=== PATIENT | male | born 1930 | race Caucasian/White ===

== ENCOUNTER 2018-02-27 11:41 | Observation (INO) | payer MEDICARE ==
[2018-02-27] MEDS ORDERED: SODIUM CHLORIDE 0.9% 1,000 ML IV ONE (12:47)
[2018-02-27] MEDS ORDERED: MORPHINE SULFATE 2 MG/ML SYRINGE IVP PRN (12:50)
--- NOTE | 2018-02-27 12:50 | ED ---
General Adult HPI - General Chief complaint: Extremity Injury, Lower Stated complaint: fall Time Seen by Provider: 02/27/18 11:44 Source: EMS, RN notes reviewed, old records reviewed Mode of arrival: EMS Limitations: no limitations - History of Present Illness Initial comments: This is a 87-year-old male the ER status post fall. Status post fall with back pain. Patient was on outpatient medication with no improvement. Patient saw his family doctor 3 days ago with no improvement. Complaining of right lumbar spine right back pain. Also complains of weakness, inability to ambulate inability to get up from his bed. Patient denies any abdominal pains no fevers. Again does admit to trauma around 1 week ago - Related Data Home Medications Medication Instructions Recorded Confirmed Warfarin Sodium [Coumadin] 5 mg PO HS 02/27/18 02/27/18 Warfarin [Coumadin] 4 mg PO HS 02/27/18 02/27/18 tiZANidine HCL [Zanaflex] 2 mg PO TID PRN 02/27/18 02/27/18 Allergies Allergy/AdvReac Type Severity Reaction Status Date / Time No Known Allergies Allergy Verified 02/27/18 12:08 Review of Systems ROS Statement: Those systems with pertinent positive or pertinent negative responses have been documented in the HPI. ROS Other: All systems not noted in ROS Statement are negative. Past Medical History Past Medical History: Prostate Disorder History of Any Multi-Drug Resistant Organisms: None Reported Past Surgical History: Prostate Surgery Past Psychological History: No Psychological Hx Reported Smoking Status: Never smoker Past Alcohol Use History: None Reported Past Drug Use History: None Reported General Exam - General Exam Comments Initial Comments: No focal neurological deficits found Limitations: no limitations General appearance: alert, in no apparent distress Head exam: Present: atraumatic, normocephalic, normal inspection Eye exam: Present: normal appearance, PERRL, EOMI. Absent: scleral icterus, conjunctival injection, periorbital swelling ENT exam: Present: normal exam, mucous membranes moist Neck exam: Present: normal inspection. Absent: tenderness, meningismus, lymphadenopathy Respiratory exam: Present: normal lung sounds bilaterally. Absent: respiratory distress, wheezes, rales, rhonchi, stridor Cardiovascular Exam: Present: regular rate, normal rhythm, normal heart sounds. Absent: systolic murmur, diastolic murmur, rubs, gallop, clicks GI/Abdominal exam: Present: soft, normal bowel sounds. Absent: distended, tenderness, guarding, rebound, rigid Extremities exam: Present: normal inspection, full ROM, normal capillary refill. Absent: tenderness, pedal edema, joint swelling, calf tenderness Back exam: Present: normal inspection Neurological exam: Present: alert, oriented X3, CN II-XII intact Psychiatric exam: Present: normal affect, normal mood Skin exam: Present: warm, dry, intact, normal color. Absent: rash Course Vital Signs 02/27/18 11:48 Temperature 98.4 F Pulse Rate 85 Respiratory 18 Rate Blood Pressure 195/86 O2 Sat by Pulse 95 Oximetry - Reevaluation(s) Reevaluation #1: 02/27/18 12:49 Patient states he still has significant back pain although the pain is controlled right now with medication Medical Decision Making - Medical Decision Making 87 male the ER for evaluation, patient sent ER today for evaluation inability to ambulate, fall a week ago, no improvement, mild UTI. Patient was transferred for further imaging - Radiology Data Radiology results: report reviewed (CT brain C-spine as well as CT lumbar spine and lumbosacral spine are reviewed which show no evidence of traumatic injury) Disposition Clinical Impression: Fall, Back pain, Weakness, UTI (urinary tract infection) Disposition: ADMITTED IP TO THIS HOSP Condition: Fair Is patient prescribed a controlled substance at d/c from ED?: No Referrals: Yaquelin Ga FNPBC [Primary Care Provider] - 1-2 days
[2018-02-27] MEDS ORDERED: ACETAMINOPHEN TAB 325 MG TAB PO PRN (13:18)
[2018-02-27 14:36] LABS: INR 2.9 (<1.2); Prothrombin Time 25.8 sec (9.0-12.0)
--- NOTE | 2018-02-27 17:00 | P.HPIM ---
History of Present Illness 87-year-old gentleman had a mechanical fall and was comparing of severe back pain with the tingling numbness radiating to bilateral lower limb area. Patient denied any significant weakness patient lives by himself. Patient was seen in [facility] was transferred here for evaluation by a back surgeon. CAT scan of the other facility showed degenerative disc disease no other significant acute abnormality was appreciated patient was complaining of severe back pain which she is actually controlled in ER by morphine although patient is not appropriate for morphine causes of his age. Patient has mildly elevated creatinine of 1.3 did not have his baseline. Patient does have history of DVT in the left leg for which patient is on Coumadin INR therapy 2.4. Patient will be admitted for evaluation by PT and OT and orthopedic surgery probably can be discharged tomorrow if his pain is well-controlled. Patient will be started on tramadol and Tylenol for pain. Patient was started on Rocephin for possibility of urinary tract infection although patient does not have any symptoms of UTI this antibiotic will be discontinued tomorrow upon discharge. Patient will be continued on IV fluids that was started in ER and recheck the creatinine tomorrow. MRA of the lower back was ordered from ER. Review of Systems REVIEW OF SYSTEMS: CONSTITUTIONAL: No fever, no malaise, no fatigue. HEENT: No recent visual problems or hearing problems. Denied any sore throat. CARDIOVASCULAR: No chest pain, orthopnea, PND, no palpitations, no syncope. PULMONARY: No shortness of breath, no cough, no hemoptysis. GASTROINTESTINAL: No diarrhea, no nausea, no vomiting, no abdominal pain. Normoactive bowel sounds. NEUROLOGICAL: No headaches, no weakness, no numbness. HEMATOLOGICAL: Denies any bleeding or petechiae. GENITOURINARY: Denies any burning micturition, frequency, or urgency. MUSCULOSKELETAL/RHEUMATOLOGICAL: As mentioned in HPI ENDOCRINE: Denies any polyuria or polydipsia. The rest of the 14-point review of systems is negative. 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 History of Any Multi-Drug Resistant Organisms: None Reported Past Surgical History: Prostate Surgery Additional Past Surgical History / Comment(s): L caratid endartectomy, TURP, bilateral cataract removals with lens implants, R clavicle fracture with surgery. Past Anesthesia/Blood Transfusion Reactions: Motion Sickness Smoking Status: Former smoker - Past Family History Father Family Medical History: No Reported History Additional Family Medical History / Comment(s): Father was healthy and lived to be in his 90s. Mother Family Medical History: No Reported History Additional Family Medical History / Comment(s): Mother was healthy and lived to be in her 90s. Medications and Allergies Home Medications Medication Instructions Recorded Confirmed Type Warfarin Sodium [Coumadin] 5 mg PO HS 02/27/18 02/27/18 History Warfarin [Coumadin] 4 mg PO HS 02/27/18 02/27/18 History tiZANidine HCL [Zanaflex] 2 mg PO TID PRN 02/27/18 02/27/18 History Allergies Allergy/AdvReac Type Severity Reaction Status Date / Time No Known Allergies Allergy Verified 02/27/18 12:08 Physical Exam Vitals: Vital Signs Temp Pulse Pulse Resp BP BP Pulse Ox 02/27/18 14:06 97.6 F 80 20 162/79 96 02/27/18 13:27 66 18 160/72 94 L 02/27/18 11:48 98.4 F 85 18 195/86 95 Intake and Output 02/27/18 02/27/18 02/27/18 06:59 14:59 22:59 Output Total 150 Balance -150 Output: Urine 150 Other: Voiding Method Urinal # Bowel Movements 0 Weight 77.111 kg PHYSICAL EXAMINATION: GENERAL: The patient is alert and oriented x3, not in any acute distress. Well developed, well nourished. HEENT: Pupils are round and equally reacting to light. EOMI. No scleral icterus. No conjunctival pallor. Normocephalic, atraumatic. No pharyngeal erythema. No thyromegaly. CARDIOVASCULAR: S1 and S2 present. No murmurs, rubs, or gallops. PULMONARY: Chest is clear to auscultation, no wheezing or crackles. ABDOMEN: Soft, nontender, nondistended, normoactive bowel sounds. No palpable organomegaly. MUSCULOSKELETAL: Mild bilateral paraspinal tenderness in lower lumbar area. EXTREMITIES: No cyanosis, clubbing, or pedal edema. NEUROLOGICAL: Gross neurological examination did not reveal any focal deficits. SKIN: No rashes. Results Labs: Abnormal Lab Results - Last 24 Hours (Table) 02/27/18 Range/Units 14:05 PT 25.8 H (9.0-12.0) sec INR 2.9 H (<1.2) Thrombosis Risk Factor Assmnt - Choose All That Apply Any of the Below Risk Factors Present?: Yes Other Risk Factors: Yes Each Risk Factor Represents 3 Points: Age 75 years or older, History of DVT/PE Other congenital or acquired thrombophilia - If yes, enter type in comment: No Thrombosis Risk Factor Assessment Total Risk Factor Score: 6 Thrombosis Risk Factor Assessment Level: High Risk Assessment and Plan Plan: -Fall: Mechanical, PT and OT evaluation. -Lower back pain probably degenerative disc disease, spinal surgeon will be consulted pain management with Tylenol and tramadol PT and OT evaluation -DVT in the left leg which is pretty decent patient is on Coumadin therapy cannot which will be continued, repeat INR tomorrow -Renal failure: Most probably acute renal failure due to intravascular volume depletion patient will be can you done IV fluids and repeat basic metabolic profile tomorrow. Possible asymptomatic bacteriuria, will not require any antibiotics
[2018-02-27] MEDS: SODIUM CHLORIDE 0.9% 1,000 ML IV SCH (17:21)
[2018-02-27] MEDS ORDERED: WARFARIN 5 MG TAB PO SCH (18:00)
[2018-02-27] MEDS ORDERED: WARFARIN 2 MG TAB PO SCH (18:00)
[2018-02-27] MEDS: traMADol 50 MG TAB PO PRN (20:02)
[2018-02-28] MEDS: traMADol 50 MG TAB PO PRN (05:49)
[2018-02-28] MEDS: SODIUM CHLORIDE 0.9% 1,000 ML IV SCH ×2 (05:50→11:01)
[2018-02-28 06:28] VITALS: TEMP 98.7
[2018-02-28] MEDS ORDERED: cefTRIAXone IN SWFI 1,000 MG/10 ML SYRINGE IVP SCH (09:00)
--- NOTE | 2018-02-28 09:29 | P.CNOR ---
<Jim Trujillo - Last Filed: 02/28/18 09:19> History of Present Illness - [facility] Consult date: 02/28/18 Requesting physician: Amy Morejon Consult reason: low back pain, other (Status post fall) History of present illness: Patient is very pleasant 87-year-old male who is seen and examined at the bedside after consultation was placed for acute low back pain status post fall. Patient states he was at his friend's house yesterday when he ambulated up 3 steps. He caught his toe on the top steps and fell down 3 steps onto his back. Since that time he has had exacerbation of low back pain. He was taken to [place] emergency for further evaluation. CT imaging of his lumbar spine was taken that time that was negative for fracture or acute finding. He was transferred to [facility] for further evaluation. MRI lumbar spine is scheduled for this morning. He denies any specific lower extremity radiculopathy or weakness bilaterally. He is able to move his legs independently without difficulty. He does feel he would be ready for discharge home today. He states his pain is generalized across his lumbar spine. He does not have a specific pinpoint pain. His low back pain is exacerbated with coughing or sneezing. 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 He's been on this medication over the past 3 years. 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 History of Any Multi-Drug Resistant Organisms: None Reported Past Surgical History: Prostate Surgery Additional Past Surgical History / Comment(s): L caratid endartectomy, TURP, bilateral cataract removals with lens implants, R clavicle fracture with surgery. Past Anesthesia/Blood Transfusion Reactions: Motion Sickness Smoking Status: Former smoker - Past Family History Father Family Medical History: No Reported History Additional Family Medical History / Comment(s): Father was healthy and lived to be in his 90s. Mother Family Medical History: No Reported History Additional Family Medical History / Comment(s): Mother was healthy and lived to be in her 90s. Medications and Allergies Home Medications Medication Instructions Recorded Confirmed Type tiZANidine HCL [Zanaflex] 2 mg PO TID PRN 02/27/18 02/27/18 History Acetaminophen Tab [Tylenol] 650 mg PO Q4HR PRN tab 02/28/18 Rx Warfarin [Coumadin] 3 mg PO HS #0 02/28/18 02/27/18 Rx traMADol HCl [Ultram] 50 mg PO QID PRN #12 tab 02/28/18 Rx Allergies Allergy/AdvReac Type Severity Reaction Status Date / Time No Known Allergies Allergy Verified 02/27/18 12:08 Physical Examination Physical exam: Patient is awake, alert, and oriented 3 Vital signs stable Good chest excursion with deep inspiration and expiration Examination of lumbar spine reveals skin is intact with no abrasions, lacerations, or bruises; no erythema, purulence or signs of infection Is significant pain with palpation across the lumbar spine Dorsiflexion, plantarflexion, and extensor hallucis longus positive sustained bilaterally Lower extremity strength 5/5 bilaterally Patellar reflex 1+ bilaterally and Achilles reflexes 0+ bilaterally No lower extremity hyperreflexia bilaterally Straight leg test negative bilateral lower extremities Negative Lasegue's test bilaterally No signs or symptoms of DVT; no calf pain No pain with internal and external rotation of the hips bilaterally Neurovascularly intact Results Pertinent studies: CT of the cervical spine and lumbar spine was reviewed by emergency physician and reports no evidence of traumatic injury; images and report are not available for review - Labs Labs: Abnormal Lab Results - Last 24 Hours (Table) 02/27/18 Range/Units 14:05 PT 25.8 H (9.0-12.0) sec INR 2.9 H (<1.2) Coagulation 02/27/18 Range/Units 14:05 INR 2.9 H (<1.2) Assessment and Plan Assessment: Assessment: Acute low back pain Status post fall History of right lower extremity DVT currently on Coumadin for anticoagulation (1) Low back pain Status: Acute Code(s): M54.5 - LOW BACK PAIN SNOMED Code(s): 437986143 (2) Status post fall Status: Acute Code(s): Z91.81 - HISTORY OF FALLING SNOMED Code(s): 652915190 (3) History of DVT of lower extremity Status: Acute Code(s): Z86.718 - PERSONAL HISTORY OF OTHER VENOUS THROMBOSIS AND EMBOLISM SNOMED Code(s): 444938187 Plan: Plan: 1. Patient has been discussed in detail with Dr. Nixon Vega. After physical examination of the patient and further discussion with the patient, we are currently planning to continue conservative treatment in regards to his lumbar spine. CT imaging has not shown any evidence of acute fracture or traumatic injury. Patient does feel his symptoms have been improving since his admittance with some pain medication. He denies lower extremity weakness radiculopathy bilaterally. He does feel he be able to be discharged home today. His currently scheduled for an MRI lumbar spine this morning. We discussed if the MRI results are negative for acute findings he is clear for discharge home from orthopedic standpoint. We plan to follow-up in the office in approximately 1-2 weeks for further evaluation. Patient agrees this is a good plan of care. 2. Dr. Morejon in medicine will continue to follow the patient closely. He is currently planning for discharge home today if lumbar MRI results are negative for acute fracture or traumatic findings. 3. Following discharge, patient will plan to follow-up with Jim Swift or Dr. Nixon Vega at [facility] 4. Patient has been discussed in detail with Dr. Nixon Vega and he agrees with this plan Time with Patient: Less than 30 <Sabina Vega - Last Filed: 03/01/18 08:22> Physical Examination Osteopathic Statement: *. No significant issues noted on an osteopathic structural exam other than those noted in the History and Physical/Consult. Results - Labs Labs: Abnormal Lab Results - Last 24 Hours (Table) 02/28/18 02/28/18 02/28/18 Range/Units 09:07 09:07 09:07 RBC 3.51 L (4.30-5.90) m/uL Hgb 11.8 L (13.0-17.5) gm/dL Hct 36.4 L (39.0-53.0) % MCV 103.8 H (80.0-100.0) fL PT 29.8 H (9.0-12.0) sec INR 3.3 H (<1.2) Chloride 109 H (98-107) mmol/L BUN 22 H (9-20) mg/dL Glucose 113 H (74-99) mg/dL Calcium 8.2 L (8.4-10.2) mg/dL H & H 02/28/18 Range/Units 09:07 Hgb 11.8 L (13.0-17.5) gm/dL Hct 36.4 L (39.0-53.0) % Coagulation 02/27/18 02/28/18 Range/Units 14:05 09:07 INR 2.9 H 3.3 H (<1.2) Result Diagrams: 02/28/18 09:07 02/28/18 09:07 Assessment and Plan Plan: Case reviewed and images reviewed. Pt with a T12 fracture that will be treated conservatively with a brace and can follow up as out patient 1-2 weeks.
[2018-02-28 09:54] LABS: HCT 36.4 % (39.0-53.0); HGB 11.8 gm/dL (13.0-17.5); MCH 33.6 pg (25.0-35.0); MCHC 32.3 g/dL (31.0-37.0); MCV 103.8 fL (80.0-100.0); Macrocytosis Moderate; Mean Platelet Volume 7.2; Platelet Count 190 k/uL (150-450); RBC 3.51 m/uL (4.30-5.90); RDW 15.2 % (11.5-15.5); WBC 4.9 k/uL (3.8-10.6)
[2018-02-28 10:03] LABS: Calcium 8.2 mg/dL (8.4-10.2); Potassium 4.5 mmol/L (3.5-5.1)
[2018-02-28 10:10] LABS: INR 3.3 (<1.2); Prothrombin Time 29.8 sec (9.0-12.0)
--- NOTE | 2018-02-28 10:53 | MR ---
EXAMINATION TYPE: MR lumbar spine wo con DATE OF EXAM: 02/28/2018 COMPARISON: Outside CT lumbar spine from yesterday HISTORY: pain TECHNIQUE: Multiplanar, multisequence imaging of the lumbar spine is performed without IV contrast. FINDINGS: Sagittal images of the lumbar spine show vertebral body heights and alignment to appear sta ble and straightened. Multilevel disc desiccation and redemonstrated. The disc space heights are fair ly well-maintained. No suspicious posterior disc herniations are seen on sagittal images. Correlating with recent CT there is horizontal linear T1 and T2 signal with superior edema consistent with acute nondisplaced transverse fracture through the anterior superior T12 vertebra, there is extension to t he superior endplate noted on sagittal image 10. Minimal height loss superior T12 endplate is redemon strated. No posterior extension or retropulsion is clearly seen into the spinal canal. The conus medu llaris is normal in position and signal ending at L1 level. Large hemangioma at L2 level is redemonst rated. Round well-defined low intense lesion inferior L3 endplate correlates with CT sagittal image 2 6 probable large Schmorl node. Axial images show the T12-L1 level to appear within normal limits. Axial images at L1-L2 level show mild broad disc bulge with right paracentral disc protrusion compone nt with annular tear axial image 23 minimally effacing anterior thecal sac, bilateral neural foramina are patent. Axial images at L2-L3 level show mild broad disc bulge mildly effacing anterior thecal sac with annul ar tear. Bilateral neural foramina are patent. Axial images at L3-L4 level show mild to moderate broad disc bulge minimally effacing anterior thecal sac and causing mild to moderate bilateral anterior inferior neural foraminal narrowing. Axial images at L4-L5 level show mild facet degenerative changes bilaterally. There is broad-based ce ntral disc protrusion. There is annular tear. Bilateral neural foramina show mild anterior inferior n eural foraminal narrowing. Spinal canal is preserved. Axial images at L5-S1 level show mild facet arthropathy bilaterally. There is central disc protrusion seen but spinal canal is preserved. Bilateral neural foramina are patent. There is retroaortic left renal vein which is normal variant. Artifact from IVC filter near this leve l was not as well seen on MRI versus CT. There are prominent but subcentimeter retroperitoneal lymph nodes redemonstrated. IMPRESSION: Acute comminuted fracture involving the superior and anterior endplates of T12 vertebra w ith minimal superior height loss is confirmed.
[2018-02-28 14:30] VITALS: BP 149/52; PULSE 69; RESP 16
--- NOTE | 2018-03-04 16:43 | P.DS ---
Providers Date of admission: 02/27/18 12:47 Expected date of discharge: 02/28/18 Attending physician: Courtney Morejon Consults: 02/27/18 13:19 Consult Physician Routine Consulting Provider: Sabina Vega Consult Reason/Comments: Back pain Do you want consulting provider notified?: Yes Primary care physician: Yaquelin Ga, [facility] Hospital Course: Final Diagnoses -Fall: Mechanical, PT and OT evaluation. -Lower back pain probably degenerative disc disease -DVT in the left leg which is pretty decent patient is on Coumadin therapy -Renal failure: Most probably acute renal failure due to intravascular volume depletion Possible asymptomatic bacteriuria, will not require any antibiotics 87-year-old gentleman had a mechanical fall and was comparing of severe back pain with the tingling numbness radiating to bilateral lower limb area. Patient denied any significant weakness patient lives by himself. Patient was seen in [facility] was transferred here for evaluation by a back surgeon. CAT scan of the other facility showed degenerative disc disease no other significant acute abnormality was appreciated patient was complaining of severe back pain which she is actually controlled in ER by morphine although patient is not appropriate for morphine causes of his age. Patient has mildly elevated creatinine of 1.3 did not have his baseline. Patient does have history of DVT in the left leg for which patient is on Coumadin INR therapy 2.4. Patient will be admitted for evaluation by PT and OT and orthopedic surgery probably can be discharged tomorrow if his pain is well-controlled. Patient will be started on tramadol and Tylenol for pain. Patient was started on Rocephin for possibility of urinary tract infection although patient does not have any symptoms of UTI this antibiotic will be discontinued tomorrow upon discharge. Patient will be continued on IV fluids that was started in ER and recheck the creatinine tomorrow.CT of the cervical spine and lumbar spine was reviewed by emergency physician and reports no evidence of traumatic injury; images and report are not available for review MRI of the lower back was ordered from ER.Evaluated by orthopedic spine surgery , PT/OT. Lumbar/Spine MRI reporting T12 compression fracture as per orthopedics review with TLSO Brace recommended. Cleared by orthopedic surgery for discharge. Patient is being discharged home in a stable condition with guarded prognosis with brace. EXAM: GENERAL: The patient is alert and oriented x3, not in any acute distress. CARDIOVASCULAR: S1 and S2 present. No murmurs, rubs, or gallops. PULMONARY: Chest is clear to auscultation, no wheezing or crackles. ABDOMEN: Soft, nontender, nondistended, normoactive bowel sounds. No palpable organomegaly. MUSCULOSKELETAL: Mild bilateral paraspinal tenderness in lower lumbar area. NEUROLOGICAL: Gross neurological examination did not reveal any focal deficits. The impression and plan of care has been dictated as directed. : I performed a history and examination of this patient, discussed the same with the dictator. I agree with the dictator's note ,documented as a scribe. Any additional findings or plans will be noted. Time taken: 35 minutes Patient Condition at Discharge: Stable Plan - Discharge Summary Discharge Rx Participant: No New Discharge Prescriptions: New Acetaminophen Tab [Tylenol] 650 mg PO Q4HR PRN tab PRN Reason: Fever And/ Or Pain traMADol HCl [Ultram] 50 mg PO QID PRN #12 tab PRN Reason: Pain/Discomfort Continue tiZANidine HCL [Zanaflex] 2 mg PO TID PRN PRN Reason: Muscle Spasm Changed Warfarin [Coumadin] 3 mg PO HS #0 Discontinued Warfarin Sodium [Coumadin] 5 mg PO HS Discharge Medication List tiZANidine HCL [Zanaflex] 2 mg PO TID PRN 02/27/18 [History] Acetaminophen Tab [Tylenol] 650 mg PO Q4HR PRN tab 02/28/18 [Rx] Warfarin [Coumadin] 3 mg PO HS #0 02/28/18 [Rx] traMADol HCl [Ultram] 50 mg PO QID PRN #12 tab 02/28/18 [Rx] Follow up Appointment(s)/Referral(s): Yaquelin Ga FNPBC [Primary Care Provider] - 03/05/18 3:15 pm Jim Trujillo PAC [PHYSICIAN [employer]ER] - 03/16/18 10:30 am () Ambulatory/Diagnostic Orders: Prothrombin Time INR [LAB.AMB] Time Frame: 03/02/18, Location: Determined By Patient Patient Instructions/Handouts: Urinary Tract Infection in Men (DC), Back Pain ( GEN) Activity/Diet/Wound Care/Special Instructions: Spinomed TLSO Brace as per Ortho post MRI Review. Wear back brace at all time except in shower and when in bed. Regular diet. Activity as tolerated, fall precautions. Discharge Disposition: HOME SELF-CARE
== END 2018-02-28 18:06 | disposition home or self-care (01) ==
LOC: EC 11:41 → 4MS4W 12:47
PROVIDERS: ADMIT Hospitalist; ATTEND Hospitalist
DX: M54.5 Low back pain (principal); M19.042 Primary osteoarthritis, left hand; M19.041 Primary osteoarthritis, right hand; N17.9 Acute kidney failure, unspecified; N40.0 Benign prostatic hyperplasia without lower urinary tract symptoms; E86.9 Volume depletion, unspecified; I82.501 Chronic embolism and thrombosis of unspecified deep veins of right lower extremity; Z79.01 Long term (current) use of anticoagulants; Z87.891 Personal history of nicotine dependence; Z91.81 History of falling; Z96.1 Presence of intraocular lens; Z98.42 Cataract extraction status, left eye; Z98.41 Cataract extraction status, right eye; W10.9XXA Fall (on) (from) unspecified stairs and steps, initial encounter
CPT/HCPCS: 96361 ×3; 96374; 99284; 97161; 97165; 80048; 82607; 85027; 85610 ×2; 72148; G0378 ×2; J0696